=== PATIENT | female | born 1950 | race Caucasian/White ===

== ENCOUNTER → 2020-08-27 | Outpatient (REF) | payer MEDICARE ==
[2020-08-27 13:20] LABS: BACTERIA, URINE AUTO 2+ (NEGATIVE); MUCUS, URINE SMALL (NEGATIVE); RBC, URINE AUTO 1 /HPF (0-3); SQUAMOUS EPITHELIAL CELL UR AU 5 /HPF (0-6); WBC, URINE AUTO 90 /HPF (0-3)
== END ==
LOC: M SMT 12:56
PROVIDERS: ATTEND Specialist
DX: R33.9 Retention of urine, unspecified (principal)
CPT/HCPCS: 51798; 81015; 87088; 87186; G0463